=== PATIENT | male | born 1940 | race Caucasian/White ===

== ENCOUNTER 2017-08-10 20:45 | Inpatient (IN) | payer MEDICARE, OTHER ==
[~2017-08-10] VITALS: Ht 165.1 cm; Wt 69.8 kg
[~2017-08-10 20:45] MED LIST: ASPI-555 PO; CALC-916 PO; CHOL200013 PO; CITA-107 PO; DONE10TA43 PO; ENAL20TA PO; GLIM4TAB3 PO; INSU100V12 SQ; MEMA10TA11 PO; METO-391 PO; MULT-1258 PO; VIT1CAPS49 PO
[2017-08-10 21:41] LABS: BASOPHILS % (AUTO) 0.2 % (0.0-5.0); EOSINOPHILS % (AUTO) 0.9 % (0.0-8.0); HEMATOCRIT 33.8 % (42-54); LYMPHOCYTES % (AUTO) 18.6 % (21.0-51.0); MEAN CORPUSCULAR HGB CONC 34.6 g/dL (32.0-36.0); MEAN CORPUSCULAR VOLUME 92.5 fL (79-99); MONOCYTES % (AUTO) 7.3 % (3.0-13.0); PLATELET COUNT (AUTO) 247 K/uL (130-400); RED BLOOD CELL COUNT(AUTO) 3.65 MIL/uL (4.50-6.20); WHITE BLOOD COUNT (AUTO) 7.8 K/uL (4.8-10.8)
[2017-08-10 21:49] LABS: CREATININE 0.9 mg/dL (0.5-1.5); POTASSIUM 4.2 mmol/L (3.5-5.1)
[2017-08-10 21:54] LABS: ALBUMIN 2.6 g/dL (3.5-5.0); BILIRUBIN,TOTAL 0.3 mg/dL (0.2-1.0); TOTAL PROTEIN, SERUM 7.1 g/dL (6.0-8.3)
[2017-08-10 22:09] LABS: APPEARANCE,URINE Cloudy (CLEAR); BILIRUBIN,URINE Negative (NEGATIVE); COLOR,URINE Yellow (YELLOW); GLUCOSE, URINE (UA) >=1000 mg/dL (NEGATIVE); KETONES,URINE Negative (NEGATIVE); LEUKOCYTE ESTERASE ,URINE Small (NEGATIVE); NITRATE,URINE Positive (NEGATIVE); OCCULT BLOOD,URINE Negative (NEGATIVE); PROTEIN,URINE Negative (NEGATIVE); UROBILINOGEN,URINE 0.2 mg/dL (0.2-1.0)
[2017-08-10] MEDS ORDERED: SODIUM CHLORIDE 0.9% 500ML 500 ML IV ONE (22:14)
[2017-08-10] MEDS ORDERED: SODIUM CHLORIDE 0.9% 1000ML 1,000 ML IV ONE (22:14)
[2017-08-10 22:17] LABS: AMORPHOUS SEDIMENT,UR Moderate /LPF (None Seen); BACTERIA,URINE Moderate /HPF (None Seen); RBC,URINE None Seen /HPF (0-1); SQUAMOUS EPITHELIAL CELL,UR 0-2 /LPF (0-2)
[2017-08-10] MEDS ORDERED: INSULIN HUMULIN R 100 UNIT/ML 3ML ONE (22:54)
[2017-08-11] MEDS ORDERED: CEFTRIAXONE SODIUM 1 GM ONE (03:31)
[2017-08-11 05:05] VITALS: BP 180/93
[2017-08-11 05:16] LABS: ABG BASE EXCESS 8.9 mmol/L (-2.0-3.0); ABG OXYGEN SATURATION 93.2 % (95.0-99.0); ABG PCO2 48 mmHg (35-48)
[2017-08-11 05:31] LABS: HEMATOCRIT 33.2 % (42-54); MEAN CORPUSCULAR HEMOGLOBIN 31.5 pg (27.0-33.0); MEAN CORPUSCULAR HGB CONC 33.6 g/dL (32.0-36.0); MEAN CORPUSCULAR VOLUME 93.5 fL (79-99); PLATELET COUNT (AUTO) 230 K/uL (130-400); RED BLOOD CELL COUNT(AUTO) 3.55 MIL/uL (4.50-6.20); WHITE BLOOD COUNT (AUTO) 7.2 K/uL (4.8-10.8)
[2017-08-11 05:38] LABS: CREATININE 0.8 mg/dL (0.5-1.5); POTASSIUM 3.4 mmol/L (3.5-5.1)
[2017-08-11] MEDS: SODIUM CHLORIDE 0.9% 1000ML 1,000 ML IV SCH ×2 (05:45→16:34)
[2017-08-11] MEDS ORDERED: ACETAMINOPHEN 325 MG TAB PO PRN ×2 (05:45)
[2017-08-11] MEDS ORDERED: GLUCAGON 1MG KIT 1 MG ML IM PRN (05:45)
[2017-08-11] MEDS ORDERED: DEXTROSE 50%-WATER 50 ML DISP.SYRIN IV PRN (05:45)
[2017-08-11] MEDS ORDERED: CLONIDINE HCL 0.1 MG TABLET PO PRN (05:45)
[2017-08-11] MEDS ORDERED: NITROGLYCERIN 0.4 MG SL TAB SL PRN (05:45)
[2017-08-11] MEDS ORDERED: GUAIFENESIN-DM 200/20 MG 10 ML PO PRN (05:45)
[2017-08-11] MEDS: INSULIN R PO SS1 SQ SCH ×4 (06:44→21:09)
[2017-08-11 07:09] VITALS: BP 151/64
[2017-08-11] MEDS ORDERED: POTASSIUM CHLORIDE 10% ELIXIR 20 MEQ/15 ML UDCUP PO PRN (07:15)
[2017-08-11] MEDS ORDERED: POTASSIUM CHLORIDE 20MEQ/100ML 100 ML IV PRN (07:15)
[2017-08-11] MEDS ORDERED: POTASSIUM CHLORIDE 20 MEQ ERTAB PO PRN (07:15)
[2017-08-11] MEDS ORDERED: LIDOCAINE HCL-MPF 1% 2ML VIAL IVP PRN (07:15)
[2017-08-11] MEDS: FAMOTIDINE 20MG TAB 20 MG TAB PO SCH ×2 (08:32→19:29)
[2017-08-11 08:46] LABS: HEMOGLOBIN A1C 8.6 % (4.0-6.0)
[2017-08-11 09:16] LABS: EOSINOPHILS % (MANUAL) 1 % (1-6); LYMPHOCYTES % (MANUAL) 30 % (22-44); MAN.DIFF COMMENT-IMPRESSION MANUAL DIFFERENTIAL; MONOCYTES % (MANUAL) 6 % (2-9); PLATELET MORPHOLOGY COMMENT ADEQUATE; REACTIVE LYMPHOCYTES 1 % (0-0); SEGMENTED NEUTROPHILS % 62 % (40-70)
[2017-08-11 09:39] LABS: ALBUMIN 2.5 g/dL (3.5-5.0); BILIRUBIN,TOTAL 0.3 mg/dL (0.2-1.0)
[2017-08-11 10:58] VITALS: BP 141/69
[2017-08-11] MEDS ORDERED: INSULIN GLARGINE 100 UNITS/ML 10 ML VIAL SQ SCH (12:04)
[2017-08-11 16:24] VITALS: BP 171/73
[2017-08-11] MEDS: HYDRALAZINE HCL 20 MG/ML VIAL IV PRN (16:34)
[2017-08-11 17:30] VITALS: BP 110/41
[2017-08-11 19:57] VITALS: BP 109/45
[2017-08-12] VITALS (7 sets, daily range): BP systolic 109–196; BP diastolic 44–109
[2017-08-12] MEDS: CEFTRIAXONE SODIUM 1 GM IVP SCH (04:45)
[2017-08-12] MEDS: SODIUM CHLORIDE 0.9% 1000ML 1,000 ML IV SCH ×2 (05:33→21:28)
[2017-08-12] MEDS: INSULIN R PO SS1 SQ SCH ×4 (05:41→21:25)
[2017-08-12] MEDS: HYDRALAZINE HCL 20 MG/ML VIAL IV PRN (08:11)
[2017-08-12] MEDS: FAMOTIDINE 20MG TAB 20 MG TAB PO SCH ×2 (08:55→21:23)
[2017-08-12] MEDS ORDERED: INSULIN GLARGINE 100 UNITS/ML 10 ML VIAL SQ SCH (09:45)
[2017-08-12] MEDS ORDERED: PROC10TA13 PO (11:20)
[2017-08-12] MEDS ORDERED: HALO2ORA PO (11:20)
[2017-08-12] MEDS ORDERED: LORA0.5T2 PO (11:20)
[2017-08-12] MEDS ORDERED: HYOS-14 PO (11:20)
[2017-08-12] MEDS ORDERED: ALBU0.63 IH (11:26)
[2017-08-12] MEDS ORDERED: ACET650S14 RC (11:26)
[2017-08-12] MEDS ORDERED: BISA10SU8 RC (11:26)
[2017-08-12] MEDS ORDERED: DOCU100T PO (11:26)
[2017-08-12] MEDS ORDERED: ***HM***(Prochlorperazine Maleate 10 MG) PO PRN (11:30)
[2017-08-12] MEDS ORDERED: HALOPERIDOL 1 MG TABLET PO PRN (11:30)
[2017-08-12] MEDS ORDERED: HYOSCYAMINE SULFATE 0.125 MG TAB.SUBL SL SCH (11:30)
[2017-08-12] MEDS ORDERED: LORAZEPAM 0.5 MG TABLET PO PRN (11:30)
[2017-08-12] MEDS: GLIMEPIRIDE 2 MG TABLET PO SCH (16:28)
[2017-08-12] MEDS: CALCIUM 600 + VITAMIN D 400 TABLET PO SCH (16:28)
[2017-08-12] MEDS: METOPROLOL TARTRATE 25 MG TAB PO SCH (21:23)
[2017-08-12] MEDS: MEMANTINE HCL 5 MG TABLET PO SCH (21:23)
[2017-08-13 00:35] VITALS: BP 114/58
[2017-08-13 03:25] VITALS: BP 146/61
[2017-08-13] MEDS: CEFTRIAXONE SODIUM 1 GM IVP SCH (04:56)
[2017-08-13] MEDS: INSULIN R PO SS1 SQ SCH ×4 (06:21→21:35)
[2017-08-13 08:57] VITALS: BP 142/77
[2017-08-13] MEDS: D3 PO SCH (09:00)
[2017-08-13] MEDS: VIT A PO SCH (09:00)
[2017-08-13] MEDS: COD LIVER OIL PO SCH (09:00)
[2017-08-13] MEDS: ***HM***(Cholecalciferol (Vitamin D3) (Vitamin D3) 2,000 UNIT) PO SCH (09:00)
[2017-08-13] MEDS ORDERED: MULTIVITAMIN WITH MINERALS TABLET PO ONE (10:07)
[2017-08-13] MEDS: ASPIRIN 81 MG EC TAB PO SCH (10:48)
[2017-08-13] MEDS: FAMOTIDINE 20MG TAB 20 MG TAB PO SCH ×2 (10:48→21:32)
[2017-08-13] MEDS: CITALOPRAM 20 MG TABLET PO SCH (10:48)
[2017-08-13] MEDS: MULTIVITAMIN WITH MINERALS TABLET PO SCH (10:48)
[2017-08-13] MEDS: MEMANTINE HCL 5 MG TABLET PO SCH ×2 (10:48→21:32)
[2017-08-13] MEDS: ENALAPRIL MALEATE 10 MG TABLET PO SCH (10:49)
[2017-08-13] MEDS: METOPROLOL TARTRATE 25 MG TAB PO SCH ×2 (10:50→21:32)
[2017-08-13] MEDS: CALCIUM 600 + VITAMIN D 400 TABLET PO SCH ×2 (10:56→17:31)
[2017-08-13] MEDS: DONEPEZIL HCL 5 MG TAB PO SCH (10:56)
[2017-08-13] MEDS: GLIMEPIRIDE 2 MG TABLET PO SCH ×2 (10:57→17:52)
[2017-08-13] MEDS: SODIUM CHLORIDE 0.9% 1000ML 1,000 ML IV SCH (13:14)
[2017-08-13] MEDS: LEVOFLOXACIN 500 MG/D5W 100 ML 100 ML IV SCH (13:14)
[2017-08-13 13:16] VITALS: BP 128/52
[2017-08-13 20:00] VITALS: BP 145/69
[2017-08-13 23:43] VITALS: BP 128/72
[2017-08-14 04:00] VITALS: BP 110/62
[2017-08-14] MEDS: SODIUM CHLORIDE 0.9% 1000ML 1,000 ML IV SCH ×2 (04:59→12:35)
[2017-08-14] MEDS: INSULIN R PO SS1 SQ SCH ×4 (06:13→21:00)
[2017-08-14] MEDS: D3 PO SCH (09:00)
[2017-08-14] MEDS: VIT A PO SCH (09:00)
[2017-08-14] MEDS: COD LIVER OIL PO SCH (09:00)
[2017-08-14 09:35] VITALS: BP 152/56
[2017-08-14] MEDS: DONEPEZIL HCL 5 MG TAB PO SCH (10:30)
[2017-08-14] MEDS: ENALAPRIL MALEATE 10 MG TABLET PO SCH (10:30)
[2017-08-14] MEDS: CITALOPRAM 20 MG TABLET PO SCH (10:30)
[2017-08-14] MEDS: FAMOTIDINE 20MG TAB 20 MG TAB PO SCH ×2 (10:30→21:46)
[2017-08-14] MEDS: MULTIVITAMIN WITH MINERALS TABLET PO SCH (10:30)
[2017-08-14] MEDS: METOPROLOL TARTRATE 25 MG TAB PO SCH ×2 (10:31→21:46)
[2017-08-14] MEDS: ASPIRIN 81 MG EC TAB PO SCH (10:31)
[2017-08-14] MEDS: MEMANTINE HCL 5 MG TABLET PO SCH ×2 (10:31→21:46)
[2017-08-14] MEDS: CALCIUM 600 + VITAMIN D 400 TABLET PO SCH ×2 (10:34→16:28)
[2017-08-14] MEDS: GLIMEPIRIDE 2 MG TABLET PO SCH ×2 (10:44→16:28)
[2017-08-14] MEDS: LACTULOSE 20 GM/30 ML UDCUP PO PRN (10:45)
[2017-08-14] MEDS: LEVOFLOXACIN 500 MG/D5W 100 ML 100 ML IV SCH (10:46)
[2017-08-14 10:51] LABS: HEMATOCRIT 33.9 % (42-54); MEAN CORPUSCULAR HEMOGLOBIN 31.9 pg (27.0-33.0); MEAN CORPUSCULAR HGB CONC 34.2 g/dL (32.0-36.0); MEAN CORPUSCULAR VOLUME 93.3 fL (79-99); PLATELET COUNT (AUTO) 232 K/uL (130-400); RED BLOOD CELL COUNT(AUTO) 3.63 MIL/uL (4.50-6.20); RED CELL DISTRIBUTION WIDTH 13.3 % (11.0-15.5)
[2017-08-14 12:00] VITALS: BP 128/65
[2017-08-14] MEDS: ***HM***(Cholecalciferol (Vitamin D3) (Vitamin D3) 2,000 UNIT) PO SCH (12:35)
[2017-08-14 16:00] VITALS: BP 137/62
[2017-08-14 20:00] VITALS: BP 118/53
[2017-08-14 23:58] VITALS: BP 157/88
[2017-08-15 04:00] VITALS: BP 126/55
[2017-08-15] MEDS: SODIUM CHLORIDE 0.9% 1000ML 1,000 ML IV SCH ×2 (05:21→16:25)
[2017-08-15] MEDS: INSULIN R PO SS1 SQ SCH ×4 (06:11→23:09)
[2017-08-15 08:00] VITALS: BP 124/46
[2017-08-15] MEDS: D3 PO SCH (09:00)
[2017-08-15] MEDS: COD LIVER OIL PO SCH (09:00)
[2017-08-15] MEDS: VIT A PO SCH (09:00)
[2017-08-15] MEDS: ***HM***(Cholecalciferol (Vitamin D3) (Vitamin D3) 2,000 UNIT) PO SCH (09:00)
[2017-08-15] MEDS: MULTIVITAMIN WITH MINERALS TABLET PO SCH (10:24)
[2017-08-15] MEDS: CALCIUM 600 + VITAMIN D 400 TABLET PO SCH ×2 (10:24→17:19)
[2017-08-15] MEDS: FAMOTIDINE 20MG TAB 20 MG TAB PO SCH ×2 (10:25→23:07)
[2017-08-15] MEDS: MEMANTINE HCL 5 MG TABLET PO SCH ×2 (10:25→23:07)
[2017-08-15] MEDS: ENALAPRIL MALEATE 10 MG TABLET PO SCH (10:25)
[2017-08-15] MEDS: METOPROLOL TARTRATE 25 MG TAB PO SCH ×2 (10:26→23:07)
[2017-08-15] MEDS: CITALOPRAM 20 MG TABLET PO SCH (10:26)
[2017-08-15] MEDS: DONEPEZIL HCL 5 MG TAB PO SCH (10:26)
[2017-08-15] MEDS: ASPIRIN 81 MG EC TAB PO SCH (10:26)
[2017-08-15] MEDS: GLIMEPIRIDE 2 MG TABLET PO SCH ×2 (10:28→17:19)
[2017-08-15] MEDS: LEVOFLOXACIN 500 MG/D5W 100 ML 100 ML IV SCH (10:44)
[2017-08-15 11:00] VITALS: BP 114/55
[2017-08-15 16:00] VITALS: BP 101/47
[2017-08-15 20:00] VITALS: BP 146/56
[2017-08-16] VITALS (8 sets, daily range): BP systolic 105–190; BP diastolic 40–92
[2017-08-16] MEDS: INSULIN R PO SS1 SQ SCH ×4 (06:54→21:00)
[2017-08-16] MEDS: D3 PO SCH (09:00)
[2017-08-16] MEDS: VIT A PO SCH (09:00)
[2017-08-16] MEDS: ***HM***(Cholecalciferol (Vitamin D3) (Vitamin D3) 2,000 UNIT) PO SCH (09:00)
[2017-08-16] MEDS: COD LIVER OIL PO SCH (09:00)
[2017-08-16] MEDS: ENALAPRIL MALEATE 10 MG TABLET PO SCH (10:21)
[2017-08-16] MEDS: DONEPEZIL HCL 5 MG TAB PO SCH (10:21)
[2017-08-16] MEDS: CITALOPRAM 20 MG TABLET PO SCH (10:21)
[2017-08-16] MEDS: ASPIRIN 81 MG EC TAB PO SCH (10:21)
[2017-08-16] MEDS: MULTIVITAMIN WITH MINERALS TABLET PO SCH (10:21)
[2017-08-16] MEDS: FAMOTIDINE 20MG TAB 20 MG TAB PO SCH ×2 (10:21→22:26)
[2017-08-16] MEDS: METOPROLOL TARTRATE 25 MG TAB PO SCH ×2 (10:22→22:26)
[2017-08-16] MEDS: MEMANTINE HCL 5 MG TABLET PO SCH ×2 (10:22→22:26)
[2017-08-16] MEDS: CALCIUM 600 + VITAMIN D 400 TABLET PO SCH ×2 (10:23→18:12)
[2017-08-16] MEDS: GLIMEPIRIDE 2 MG TABLET PO SCH ×2 (10:23→18:12)
[2017-08-16] MEDS: LEVOFLOXACIN 500 MG/D5W 100 ML 100 ML IV SCH (11:17)
[2017-08-16 11:57] LABS: CREATININE 0.7 mg/dL (0.5-1.5); POTASSIUM 3.6 mmol/L (3.5-5.1)
[2017-08-17 04:00] VITALS: BP 116/48
[2017-08-17] MEDS: INSULIN R PO SS1 SQ SCH ×4 (06:30→21:00)
[2017-08-17 07:00] VITALS: BP 117/45
[2017-08-17] MEDS: ENALAPRIL MALEATE 10 MG TABLET PO SCH (09:00)
[2017-08-17] MEDS: VIT A PO SCH (09:00)
[2017-08-17] MEDS: D3 PO SCH (09:00)
[2017-08-17] MEDS: METOPROLOL TARTRATE 25 MG TAB PO SCH ×2 (09:00→23:01)
[2017-08-17] MEDS: COD LIVER OIL PO SCH (09:00)
[2017-08-17] MEDS: ***HM***(Cholecalciferol (Vitamin D3) (Vitamin D3) 2,000 UNIT) PO SCH (09:00)
[2017-08-17] MEDS: MULTIVITAMIN WITH MINERALS TABLET PO SCH (09:33)
[2017-08-17] MEDS: FAMOTIDINE 20MG TAB 20 MG TAB PO SCH ×2 (09:33→23:00)
[2017-08-17] MEDS: CITALOPRAM 20 MG TABLET PO SCH (09:33)
[2017-08-17] MEDS: ASPIRIN 81 MG EC TAB PO SCH (09:34)
[2017-08-17] MEDS: GLIMEPIRIDE 2 MG TABLET PO SCH ×2 (09:34→16:53)
[2017-08-17] MEDS: DONEPEZIL HCL 5 MG TAB PO SCH (09:34)
[2017-08-17] MEDS: MEMANTINE HCL 5 MG TABLET PO SCH ×2 (09:34→23:01)
[2017-08-17] MEDS: CALCIUM 600 + VITAMIN D 400 TABLET PO SCH ×2 (09:34→16:53)
[2017-08-17] MEDS: LACTULOSE 20 GM/30 ML UDCUP PO PRN (10:23)
[2017-08-17 12:00] VITALS: BP 123/39
[2017-08-17 16:00] VITALS: BP 127/58
[2017-08-17] MEDS: LEVOFLOXACIN 500 MG TABLET PO SCH (16:51)
[2017-08-17 20:00] VITALS: BP 163/54
[2017-08-17 23:39] VITALS: BP 144/60
[2017-08-18 03:58] VITALS: BP 112/63
[2017-08-18 07:00] VITALS: BP 138/50
[2017-08-18] MEDS: INSULIN R PO SS1 SQ SCH (07:30)
[2017-08-18] MEDS: COD LIVER OIL PO SCH (09:00)
[2017-08-18] MEDS: D3 PO SCH (09:00)
[2017-08-18] MEDS: VIT A PO SCH (09:00)
[2017-08-18] MEDS: ***HM***(Cholecalciferol (Vitamin D3) (Vitamin D3) 2,000 UNIT) PO SCH (09:00)
[2017-08-18] MEDS: ASPIRIN 81 MG EC TAB PO SCH (09:44)
[2017-08-18] MEDS: CITALOPRAM 20 MG TABLET PO SCH (09:44)
[2017-08-18] MEDS: DONEPEZIL HCL 5 MG TAB PO SCH (09:44)
[2017-08-18] MEDS: MEMANTINE HCL 5 MG TABLET PO SCH (09:44)
[2017-08-18] MEDS: FAMOTIDINE 20MG TAB 20 MG TAB PO SCH (09:44)
[2017-08-18 12:00] VITALS: BP 134/52
[2017-08-18] MEDS: LEVOFLOXACIN 500 MG TABLET PO SCH (15:16)
[2017-08-18] MEDS: LACTULOSE 20 GM/30 ML UDCUP PO PRN (15:16)
== END 2017-08-18 16:00 | disposition hospice, home (50) | DRG 177 ==
LOC: EDH 20:45 → EDHIP 08-11 02:22 → OBSVTOIN 08-11 02:22 → 2DH 08-11 04:10 → 3DH 08-12 17:40
PROVIDERS: ADMIT Family Medicine; ATTEND Family Medicine
DX: J69.0 Pneumonitis due to inhalation of food and vomit (principal); G93.40 Encephalopathy, unspecified; E11.65 Type 2 diabetes mellitus with hyperglycemia; E11.22 Type 2 diabetes mellitus with diabetic chronic kidney disease; N39.0 Urinary tract infection, site not specified; G91.2 (Idiopathic) normal pressure hydrocephalus; N21.0 Calculus in bladder; Z66 Do not resuscitate; K57.90 Diverticulosis of intestine, part unspecified, without perforation or abscess without bleeding; E86.0 Dehydration; F02.80 Dementia in other diseases classified elsewhere, unspecified severity, without behavioral disturbance, psychotic disturbance, mood disturbance, and anxiety; G30.9 Alzheimer's disease, unspecified; J44.9 Chronic obstructive pulmonary disease, unspecified; Z98.2 Presence of cerebrospinal fluid drainage device; I12.9 Hypertensive chronic kidney disease with stage 1 through stage 4 chronic kidney disease, or unspecified chronic kidney disease; K80.20 Calculus of gallbladder without cholecystitis without obstruction; N18.9 Chronic kidney disease, unspecified; Z51.5 Encounter for palliative care; G89.29 Other chronic pain; M54.9 Dorsalgia, unspecified; Z79.4 Long term (current) use of insulin; Z74.01 Bed confinement status
CPT/HCPCS: 36415; 36600; 70450; 71045; 71250; 74176; 76700; 80048; 80053; 81001; 82803; 82948; 83036; 85025; 85027; 87040; 87804; 92610; 93005; A4218; A6453; J0360; J0696; J1815; J1956; J7030; J7040

== ENCOUNTER 2017-09-19 15:18 | Observation (INO) | payer MEDICARE, OTHER ==
[~2017-09-19] VITALS: Ht 175.3 cm; Wt 73.6 kg
[~2017-09-19 15:18] MED LIST changes: +ACET650S14 RC; +ALBU0.63 IH; +BISA10SU8 RC; +DOCU100T PO; -GLIM4TAB3 PO; +HALO2ORA PO; +HYOS-14 PO; -INSU100V12 SQ; +LORA0.5T2 PO; +PROC10TA13 PO
[2017-09-19 15:58] LABS: BASOPHILS % (AUTO) 0.4 % (0.0-5.0); EOSINOPHILS % (AUTO) 0.5 % (0.0-8.0); HEMATOCRIT 35.9 % (42-54); LYMPHOCYTES % (AUTO) 9.5 % (21.0-51.0); MEAN CORPUSCULAR HEMOGLOBIN 32.4 pg (27.0-33.0); MEAN CORPUSCULAR HGB CONC 34.5 g/dL (32.0-36.0); MEAN CORPUSCULAR VOLUME 93.8 fL (79-99); MONOCYTES % (AUTO) 4.6 % (3.0-13.0); PLATELET COUNT (AUTO) 209 K/uL (130-400); RED BLOOD CELL COUNT(AUTO) 3.83 MIL/uL (4.50-6.20); RED CELL DISTRIBUTION WIDTH 14.2 % (11.0-15.5); WHITE BLOOD COUNT (AUTO) 12.6 K/uL (4.8-10.8)
[2017-09-19 16:09] LABS: INR 1.02 (0.85-1.15); PROTHROMBIN TIME 10.7 SEC (9.6-11.6)
[2017-09-19 16:12] LABS: CARBON DIOXIDE 33 mmol/L (21-32); CHLORIDE 103 mmol/L (101-111); CREATININE 1.3 mg/dL (0.5-1.5); GLOMERULAR FILTR. RATE CALC 57 mL/min (>60); GLUCOSE,RANDOM 229 mg/dL (70-105); POTASSIUM 3.8 mmol/L (3.5-5.1); SODIUM SERUM 143 mmol/L (136-145); UREA NITROGEN, BLOOD 19 mg/dL (7-18)
[2017-09-19] MEDS ORDERED: MEROPENEM 1 GM VIAL ONE (16:12)
[2017-09-19 16:27] LABS: ALANINE AMINOTRANSFERASE 14 U/L (12-78); ALBUMIN 3.1 g/dL (3.5-5.0); ASPARTATE AMINOTRANSFERASE 16 U/L (10-37); BILIRUBIN,TOTAL 0.3 mg/dL (0.2-1.0); CREATINE KINASE MB 0.7 ng/mL (0.5-3.6); CREATINE KINASE, TOTAL 35 U/L (21-232); MYOGLOBIN 60 ng/mL (10-92); TOTAL PROTEIN, SERUM 7.1 g/dL (6.0-8.3); TROPONIN I < 0.04 ng/mL (0.00-0.06)
[2017-09-19 19:27] LABS: APPEARANCE,URINE CLEAR (CLEAR); BILIRUBIN,URINE NEGATIVE (NEGATIVE); COLOR,URINE YELLOW (YELLOW); GLUCOSE, URINE (UA) NEGATIVE (NEGATIVE); KETONES,URINE NEGATIVE (NEGATIVE); LEUKOCYTE ESTERASE ,URINE NEGATIVE (NEGATIVE); NITRATE,URINE NEGATIVE (NEGATIVE); OCCULT BLOOD,URINE NEGATIVE (NEGATIVE); PH,URINE 7.5 (5.0-8.0); PROTEIN,URINE NEGATIVE (NEGATIVE); UROBILINOGEN,URINE 0.2 mg/dL (0.2-1.0)
[2017-09-19 22:55] VITALS: BP 162/64
[2017-09-19] MEDS ORDERED: ONDANSETRON HCL 4 MG/2 ML VIAL IVP PRN (23:30)
[2017-09-19] MEDS ORDERED: SODIUM CHLORIDE 0.9% 1000ML 1,000 ML IV SCH (23:30)
[2017-09-19] MEDS ORDERED: ACETAMINOPHEN 325 MG TAB PO PRN (23:30)
[2017-09-20] MEDS ORDERED: PROM25TA7 PO (00:34)
[2017-09-20] MEDS ORDERED: GLYB2.5 PO (00:34)
[2017-09-20 04:31] VITALS: BP 133/65
[2017-09-20 08:00] VITALS: BP 134/56
[2017-09-20] MEDS ORDERED: ACET160E39 PO (09:43)
[2017-09-20] MEDS ORDERED: ACETAMINOPHEN ELIXIR 650 MG/20.3 ML UDCUP PO PRN (10:45)
[2017-09-20] MEDS ORDERED: PROMETHAZINE HCL 25 MG TABLET PO PRN (10:45)
[2017-09-20] MEDS ORDERED: LORAZEPAM 0.5 MG TABLET PO PRN (10:45)
[2017-09-20 10:53] LABS: HEMATOCRIT 29.7 % (42-54); MEAN CORPUSCULAR HEMOGLOBIN 31.4 pg (27.0-33.0); MEAN CORPUSCULAR VOLUME 92.4 fL (79-99); PLATELET COUNT (AUTO) 145 K/uL (130-400); RED BLOOD CELL COUNT(AUTO) 3.22 MIL/uL (4.50-6.20); WHITE BLOOD COUNT (AUTO) 5.4 K/uL (4.8-10.8)
[2017-09-20] MEDS: CITALOPRAM 20 MG TABLET PO SCH (10:56)
[2017-09-20 12:00] VITALS: BP 118/44
[2017-09-20 16:00] VITALS: BP 119/40
[2017-09-20] MEDS: SODIUM CHLORIDE 0.9% 1000ML 1,000 ML IV SCH (17:30)
[2017-09-20] MEDS: GLYBURIDE 2.5 MG TAB PO SCH (19:34)
[2017-09-20 20:00] VITALS: BP 131/54
[2017-09-20] MEDS: MEMANTINE HCL 5 MG TABLET PO SCH (20:39)
[2017-09-20] MEDS ORDERED: METOPROLOL TARTRATE 25 MG TAB PO SCH (21:00)
[2017-09-20 23:50] VITALS: BP 116/50
[2017-09-21 04:00] VITALS: BP 159/56
[2017-09-21 05:21] LABS: HEMATOCRIT 30.5 % (42-54); MEAN CORPUSCULAR HEMOGLOBIN 33.4 pg (27.0-33.0); MEAN CORPUSCULAR HGB CONC 35.7 g/dL (32.0-36.0); MEAN CORPUSCULAR VOLUME 93.5 fL (79-99); PLATELET COUNT (AUTO) 138 K/uL (130-400); RED BLOOD CELL COUNT(AUTO) 3.26 MIL/uL (4.50-6.20); RED CELL DISTRIBUTION WIDTH 14.2 % (11.0-15.5)
[2017-09-21] MEDS: SODIUM CHLORIDE 0.9% 1000ML 1,000 ML IV SCH (06:58)
[2017-09-21 07:30] VITALS: BP 171/64
[2017-09-21] MEDS ORDERED: DONEPEZIL HCL 5 MG TAB PO SCH (09:00)
[2017-09-21] MEDS ORDERED: ENALAPRIL MALEATE 10 MG TABLET PO SCH (09:00)
[2017-09-21] MEDS ORDERED: DOCUSATE SODIUM 100 MG CAP PO SCH (09:00)
[2017-09-21] MEDS: CITALOPRAM 20 MG TABLET PO SCH (09:56)
[2017-09-21] MEDS: MEMANTINE HCL 5 MG TABLET PO SCH (09:57)
[2017-09-21] MEDS: GLYBURIDE 2.5 MG TAB PO SCH ×2 (09:58→16:59)
[2017-09-21 11:00] VITALS: BP 186/56
[2017-09-21 16:00] VITALS: BP_SYST 130; BP_SYST 148; BP_DIAS 50; BP_DIAS 52
== END 2017-09-21 17:30 | disposition hospice, home (50) ==
LOC: EDH 15:18 → EDHIP 18:57 → 4BH 23:03
PROVIDERS: ADMIT Internal Medicine; ATTEND Internal Medicine
DX: R53.1 Weakness (principal); E86.0 Dehydration; R19.7 Diarrhea, unspecified; I12.9 Hypertensive chronic kidney disease with stage 1 through stage 4 chronic kidney disease, or unspecified chronic kidney disease; E11.22 Type 2 diabetes mellitus with diabetic chronic kidney disease; N18.9 Chronic kidney disease, unspecified; F02.80 Dementia in other diseases classified elsewhere, unspecified severity, without behavioral disturbance, psychotic disturbance, mood disturbance, and anxiety; G30.9 Alzheimer's disease, unspecified; Z96.651 Presence of right artificial knee joint; Z98.2 Presence of cerebrospinal fluid drainage device
CPT/HCPCS: 36415 ×3; 70450; 71045; 74018; 80053; 81003; 82550; 82553; 82948; 83605 ×2; 83874; 84484; 85025; 85027 ×2; 85610; 85730; 87040; 87088; 87804 ×2; 92610; 93005; 96360; 96361 ×2; 97161; 97530; 99285; A6213; G0378 ×47; G8978; G8981; G8982; G8983; J2185; J7030 ×2